=== PATIENT | male | born 1965 | race Caucasian/White ===

== ENCOUNTER 2019-07-09 15:15 | Outpatient (REF) | payer SELFPAY ==
[2019-07-09 14:03] LABS: ALT 121 U/L (16-63); AST 61 U/L (15-37); Albumin 4.1 g/dL (3.4-5.0); Alkaline Phosphatase 138 U/L (46-116); Anion Gap 12.2 mmol/L (3-11); BUN 12 mg/dL (7-18); Bilirubin, Total 0.5 mg/dL (0.2-1.0); CO2 25.8 mmol/L (21.0-32.0); CREATININE 0.98 mg/dL (0.70-1.30); Calcium 9.4 mg/dL (8.5-10.1); Calculated LDL 211 mg/dL; Chloride 100 mmol/L (98-107); Cholesterol 272 mg/dL (<200); Glucose 234 mg/dL (74-106); HDL Cholesterol 37 mg/dL (40-60); Sodium 138 mmol/L (136-145); Total Protein 7.8 g/dL (6.4-8.2); Triglyceride 121 mg/dL (<150)
== END 2019-07-09 15:35 ==
LOC: LBN 15:15
PROVIDERS: PCP Family Medicine; Visit Provider Family Medicine
DX: I25.810 Atherosclerosis of coronary artery bypass graft(s) without angina pectoris (principal)
CPT/HCPCS: 80053; 80061

== ENCOUNTER 2020-11-30 18:42 | Emergency (ER) | payer SELFPAY ==
[2020-11-30] VITALS (36 sets, daily range): BP systolic 130–170; BP diastolic 69–97; PULSE 70–90; RESP 13–30; TEMP 36.5; O2SAT 93–97
--- NOTE | 2020-11-30 18:45 | RT.EKG_ITS ---
APPROVED REPORT Exam: Resting ECG Patient Location: E HR:84 bpm ECG Measurements Heart Rate 84 AXIS TN 181 P 15 QRSd 139 QRS 38 QT 389 T 60 QTc 460 Conclusion Sinus rhythm...normal P axis, V-rate 60- 99 Ventricular premature complex...V complex w/ short R-R interval Probable left atrial enlargement...P >50mS, <-0.10mV V1 Right bundle branch block...QRSd>120, terminal axis(90,270) I have reviewed and interpreted ECG and agree with software generated interpretation.
--- NOTE | 2020-11-30 18:51 | ED.GENADUL_ITS ---
Discharge Plan Disposition Patient Disposition: [facility] ([facility]) Condition: Stable Discharge Details Clinical Impression: Acute cerebrovascular accident (CVA), Internal carotid artery occlusion, Vertebral artery occlusion Primary Care Provider: Pablo Sheth ED Provider: Loraine Geronimo Home Meds and New Rx's Prescriptions: No Action aspirin 81 mg tablet,delayed release (DR/EC) 81 mg PO DAILY Qty: 90 RF: 3 atorvastatin 80 mg tablet 80 mg PO QHS Qty: 30 RF: 1 nitroglycerin 0.4 mg tablet, sublingual 0.4 mg SL Q5-15M PRN (Reason: chest pain) Qty: 60 RF: 3 naproxen sodium [Aleve] 220 mg capsule 220 mg PO Q8H RF: 0 lisinopril 10 mg tablet 10 mg PO DAILY RF: 0 Eliquis 5 mg tablet 5 mg PO BID RF: 0 metoprolol succinate 25 mg tablet extended release 24 hr 25 mg PO DAILY RF: 0 Medical Decision Making 55-year-old with multiple chronic medical problems including diabetes, hypertension, WI, CABG and recent stroke who presents to the ED with slurred speech for the past 7 hours. Patient later endorsed that he was at [facility] 9 days ago for similar slurred speech and diagnosed with a TIA and possible multiple strokes, PFO and placed on Eliquis and advised to follow-up with cardiology. Patient arrived to the ED by wheelchair as a stroke alert. Patient assessed in the hallway on a stretcher. NIH score approximately a 4 based on mild aphasia and dysarthria, mild left pronator drift, mild right lower leg ataxia. Patient protecting his airway. Blood pressure 165/88. Remainder vitals within normal limits. Patient sent directly to radiology for CTA head and neck. CTA head and neck noted occlusion of the right internal carotid artery and of the left proximal vertebral artery. Chest x-ray negative. No acute hemorrhage or midline shift noted on Noncon CT head. Case discussed with [facility] and no beds available. Case discussed with [facility] neurology --as patient has a low NIH score, questioning whether these findings are acute versus chronic. As patient was recently at [facility], will obtain any imaging studies recently obtained there to determine if this is acute versus chronic. Discussed with nursing cloth laminating supervisor at [facility] who stated that their fax machine was down and they were unable to send imaging reports. I discussed with nurse Farmer who reported that patient had a CTA head and neck with no stenosis or occlusion noted within the head but with moderate stenosis around 55% in the proximal left ICA and mild stenosis less than 50% in the right ICA. There is also noted occlusion in the proximal to mid left cervical vertebral artery of uncertain age. Patient also had an MRI brain which noted an acute or recent infarct in the right frontal extending to the right posterior temporal parietal region. He also had bilateral lower extremity ultrasounds which were negative for DVT. He also had an echo which noted a normal septum, normal left ventricular function with an EF of 50 to 55% with findings suggestive of a PFO. Patient was placed on Eliquis and a 48-hour Holter monitor was placed with plan for follow-up with cardiology. Patient states his last dose of Eliquis was last night. Patient states the difference in his symptoms last week and today was that his slurred speech resolved before transport to the ED last week and his slurred speech has persisted today and is still present. Case discussed again with [facility] neurology and he is accepted for transfer. Accepting physician Dr. Grimm. Recommend a PO aspirin and IV fluids. No recommendations for Eliquis at this time. Medical Records Medical records reviewed: Yes I reviewed the patient's medical records. Imaging Data Radiologic Study: Radiologist's impression: CT Angiography Head Without And With Contrast Exam date and time: 11/30/2020 6:50 PM Age: 55 years old Clinical indication: Speech disturbance; Patient HX: TIA x2 days ago, new onset of symptoms today at 1230, slurred speech and headache TECHNIQUE: Imaging protocol: Computed tomographic angiography of the head without and with intravenous contrast. 3D rendering (Not supervised by radiologist): MIP and/or 3D reconstructed images were created by the technologist. Radiation optimization: All CT scans at this facility use at least one of these dose optimization techniques: automated exposure control; mA and/or kV adjustment per patient size (includes targeted exams where dose is matched to clinical indication); or iterative reconstruction. Contrast material: [id number]; Contrast volume: 85 ml; Contrast route: INTRAVENOUS (IV); Other technique: STROKE PROTOCOL was implemented. COMPARISON: No relevant prior studies available. FINDINGS: ANTERIOR CIRCULATION: Right internal carotid artery: Occlusion of the right internal carotid artery, through the distal cavernous segment. Right middle cerebral artery: No occlusion or significant stenosis. No aneurysm. Right anterior cerebral artery: No occlusion or significant stenosis. No aneurysm. Left internal carotid artery: Intracranial segment is patent with no significant stenosis. No aneurysm. Left middle cerebral artery: No occlusion or significant stenosis. No aneurysm. Left anterior cerebral artery: No occlusion or significant stenosis. No aneurysm. POSTERIOR CIRCULATION: Right vertebral artery: No occlusion or significant stenosis. No aneurysm. Left vertebral artery: Hypoplastic. Basilar artery: No occlusion or significant stenosis. No aneurysm. Right posterior cerebral artery: No occlusion or significant stenosis. No aneurysm. Left posterior cerebral artery: No occlusion or significant stenosis. No aneurysm. HEAD: Brain: There is moderate diffuse heterogeneity of the white matter attenuation, consistent with chronic white matter ischemic changes. No intracranial hemorrhage, midline shift, or mass effect. No acute loss of villa-white differentiation. Cerebral ventricles: Normal. No ventriculomegaly. Bones/joints: Unremarkable. No acute fracture. Paranasal sinuses: Visualized sinuses are normal. No fluid levels. Mastoid air cells: Visualized mastoids are normal. No mastoid effusion. Soft tissues: Unremarkable. IMPRESSION: 1. Occlusion of the right internal carotid artery, through the distal cavernous portion, with reconstitution of right middle and anterior cerebral arteries. 2. Moderate periventricular white matter hypoattenuation, suggesting chronic small vessel ischemia. 3. Hypoplastic distal left vertebral artery. CT Angiography Neck Without And With Contrast Exam date and time: 11/30/2020 6:50 PM Age: 55 years old Clinical indication: Speech disturbance; Patient HX: TIA x2 days ago, new onset of symptoms today at 1230, slurred speech and headache TECHNIQUE: Imaging protocol: Computed tomographic angiography of the neck without and with contrast. 3D rendering (Not supervised by radiologist): MIP and/or 3D reconstructed images were created by the technologist. Radiation optimization: All CT scans at this facility use at least one of these dose optimization techniques: automated exposure control; mA and/or kV adjustment per patient size (includes targeted exams where dose is matched to clinical indication); or iterative reconstruction. Contrast material: [id number]; Contrast volume: 85 ml; Contrast route: INTRAVENOUS (IV); COMPARISON: No relevant prior studies available. FINDINGS: Right common carotid artery: Calcified atherosclerotic disease distally, with mild stenosis. Right internal carotid artery: Occlusion of right internal carotid artery, just above the bifurcation. Right external carotid artery: No occlusion or stenosis of the origin. Right vertebral artery: No stenosis. No dissection or occlusion. Left common carotid artery: No stenosis. No dissection or occlusion. Left internal carotid artery: Calcified atherosclerotic disease at the origin of the left internal carotid artery, resulting in mild stenosis. Left external carotid artery: No occlusion or stenosis of the origin. Left vertebral artery: Diminutive left vertebral artery, completely occluded proximally and hypoplastic distally. Bones/joints: No acute fracture. Soft tissues: Normal. No significant soft tissue swelling. IMPRESSION: 1. Occlusion of the right internal carotid artery from just above the bifurcation, through the distal cavernous segment. 2. Proximal occlusion of the diminutive left vertebral artery, which is hypoplastic distally. XR Chest Exam date and time: 11/30/2020 9:36 PM Age: 55 years old Clinical indication: Chest pain TECHNIQUE: Imaging protocol: XR of the chest. Views: 2 views. COMPARISON: No relevant prior studies available. FINDINGS: Lungs: Unremarkable. No consolidation. Pleural spaces: Unremarkable. No pleural effusion. No pneumothorax. Heart/Mediastinum: Prior CABG. No cardiomegaly. Bones/joints: Moderate right and mild left acromioclavicular joint degenerative changes. IMPRESSION: No acute cardiopulmonary abnormality. Lab Data Lab results reviewed: Yes I reviewed the patient's lab results. Labs: Laboratory Tests Range/Units 11/30/20 11/30/20 11/30/20 18:30 18:30 18:30 WBC (4.4-10.8) 10^3/uL 10.77 RBC (4.36-5.78) 10^6/uL 4.92 Hgb (13.5-17.5) g/dL 15.8 Hct (40.0-50.0) % 47.0 MCV (80-95) fL 95.5 H MCH (27.0-33.0) pg 32.1 MCHC (32.0-36.0) % 33.6 RDW (11.8-14.1) % 12.4 Plt Count (130-400) 10^3/uL 214 MPV (8.0-11.0) fL 9.5 Immature Gran % 0.5 Neutrophils % 66.0 Lymphocytes % 20.0 Monocytes % 9.1 Eosinophils % 3.2 Basophils % 1.2 Nucleated RBC % % 0 Absolute Neutrophils (1.2-6.7) 10^3/uL 7.11 H Absolute Lymphocytes (1.2-3.4) 10^3/uL 2.15 Absolute Monocytes (0.1-0.8) 10^3/uL 0.98 H Absolute Eosinophils (0.0-0.7) 10^3/uL 0.35 Absolute Basophils (0.0-0.2) 10^3/uL 0.13 PT (9.3-11.0) sec 10.4 INR (0.9-1.1) 1.0 APTT (21.0-27.5) sec 23.5 Sodium (136-145) mmol/L 142 Potassium (3.5-5.1) mmol/L 4.0 Chloride (98-107) mmol/L 102 Carbon Dioxide (21.0-32.0) mmol/L 31.9 Anion Gap (3-11) mmol/L 8.1 BUN (7-18) mg/dL 17 Creatinine (0.70-1.30) mg/dL 1.0 Estimated GFR/1.73 m2 (mL/min/1.73m2) >= 60.00 Glucose (74-106) mg/dL 173 H Calcium (8.5-10.1) mg/dL 9.6 Magnesium (1.8-2.4) mg/dL 2.2 Total Bilirubin (0.2-1.0) mg/dL 0.6 AST (15-37) U/L 43 H ALT (16-63) U/L 66 H Alkaline Phosphatase (46-116) U/L 111 Troponin I (<0.06) ng/mL < 0.05 Total Protein (6.4-8.2) g/dL 7.5 Albumin (3.4-5.0) g/dL 3.9 ECG Data Attestation: I personally reviewed and interpreted this ECG (s) as follows: Interpretation: Rate of 84, sinus, PVCs. Right bundle branch block. No old EKG to compare. No STEMI. DE 181. QTc 460. HPI General Mode of arrival: wheelchair . Date/Time Provider Initiated Documentation: 11/30/20 18:45 . Limitations to Documentation: no limitations . Information obtained by: patient . HPI Narrative: Patient is a 55-year-old male with a history of diabetes, hypertension, WI, CABG, stroke who presents to the ED with slurred speech for the past 7 hours. Patient states he had some difficulty with getting out words yesterday but states this resolved until around noon today when he was having slurred speech. He does admit that around 10:00 he started feeling fuzzy and then the slurred speech started 2 hours later. Patient denies any extremity weakness or numbness. He admitted to a brief headache upon arrival to the ED but states is now resolved. Patient states he was recently at [facility] for the same symptom presentation and diagnosed with stroke and admitted to the hospital. He states he was started on Eliquis for a PFO and was advised to follow-up with cardiology. Related Data Home Medications Medication Instructions Recorded Confirmed naproxen sodium 220 mg capsule 220 mg PO Q8H 07/07/19 11/30/20 aspirin 81 mg tablet,delayed 81 mg PO DAILY #90 tab 07/09/19 11/30/20 release atorvastatin 80 mg tablet 80 mg PO QHS #30 tab 07/09/19 11/30/20 apixaban 5 mg tablet 5 mg PO BID 11/23/20 11/30/20 lisinopril 10 mg tablet 10 mg PO DAILY 11/23/20 11/30/20 metoprolol succinate 25 mg 25 mg PO DAILY 11/23/20 11/30/20 tablet,extended release 24 hr nitroglycerin 0.4 mg sublingual 0.4 mg SL Q5-15M PRN #60 tab 11/28/20 11/30/20 tablet Previous Rx's Medication Instructions Recorded aspirin 81 mg tablet,delayed 81 mg PO DAILY #90 tab 07/09/19 release atorvastatin 80 mg tablet 80 mg PO QHS #30 tab 07/09/19 nitroglycerin 0.4 mg sublingual 0.4 mg SL Q5-15M PRN #60 tab 11/28/20 tablet Allergies Allergy/AdvReac Type Severity Reaction Status Date / Time No Known Allergies Allergy Verified 11/30/20 19:36 Review of Systems All systems reviewed & are unremarkable except as noted in HPI and below Constitutional Constitutional: Reports as per HPI, Denies chills and Denies fever(s) Eyes Eyes: Denies blurry vision ENT Ears, Nose, Mouth, and Throat: Denies dizziness, Denies sore throat and Denies throat swelling Cardiovascular Cardiovascular: Denies chest pain and Denies dyspnea Respiratory Respiratory: Denies cough and Denies dyspnea Gastrointestinal Gastrointestinal: Denies abdominal pain, Denies diarrhea and Denies vomiting Genitourinary Genitourinary: Denies hematuria and Denies dysuria Musculoskeletal Musculoskeletal: Denies back pain and Denies numbness Integumentary/Breasts Skin/Breast: Denies lesions and Denies rash Neurologic Neurologic: Reports abnormal speech, Denies dizziness, Denies localized weakness and Denies numbness Allergic/Immunologic Allergic/Immunologic: Denies throat swelling PFSH Medical History Coronary artery disease involving autologous artery coronary bypass graft Diabetes mellitus Essential hypertension Fatty liver disease, nonalcoholic Heart attack 2003 2010 2011 History of WI (myocardial infarction) Patent foramen ovale Stroke November 2020, PFO Tobacco consumption Family History (Updated 07/09/19 @ 08:55 by Lillian Young LPN) Father Alcohol abuse Heart disease Hypertension FH: heart attack Diabetes Sister Breast cancer Cancer tongue,kidney Mother Schizo affective schizophrenia Social History (Updated 08/27/19 @ 10:08 by Lillian Young LPN) Smoking/Tobacco Use Status: Current every day Tobacco Type: cigarettes Tobacco: How many years used: 39 Smoking risk assessment performed?: Yes Alcohol Intake: current Alcohol Intake frequency: 3 or more drinks per day Alcohol type: beer Drug use: Never Substance use type: does not use Adopted: No Household members: family and other Details: sister Housing: house Number of Children: 1 Do you need help understanding health information?: Often current occupation: works at [employer] Pets and animals: No Sexually active: No Do you think of yourself as: straight/heterosexual Current gender identity: male What is your relationship status?: Panel score (0-1 are the most socially isolated patients): 0 What type of physical activity do you participate in: none Seatbelt use: always Drive intox or ride w/intox wagon driver: No Working smoke detector in home: Yes Fire extinguisher in home: Yes Carbon monox detector in home: Yes Do you feel safe at home: Yes Do you feel safe in your relationship?: Yes Exam Const General: cooperative and no acute distress Orientation: alert, awake and oriented x3 HENMT Head: normal to inspection Face and sinus: normal facial exam Eyes General: appearance normal, both eyes and all related structures Pupils: PERRL EOM: EOM intact bilaterally Neck Neck: normal visual inspection and No submandibular swelling Lymphatic: no lymphadenopathy noted Chest Chest: normal inspection of the chest and no tenderness Resp Effort & Inspection: normal respiratory effort and able to speak in complete sentences Auscultation: clear to auscultation bilaterally Cardio Rate: regular rate Rhythm: regular rhythm GI Inspection: normal to inspection Palpation: soft, not firm, not rigid and nontender Auscultation: normal bowel sounds Skin General skin exam: no rashes or lesions noted Neuro General: patient alert, patient awake and patient oriented x3 Cranial Nerves: PERRL, EOM intact bilaterally, no nystagmus, facial strength normal, tongue not midline (Tongue with mild deviation to the left ), hearing normal, able to elevate shoulders bilaterally, individual cranial nerve findings and other Cognition: normal cognition Speech: abnormal speech slurred Motor: muscle tone normal throughout, strength 5/5 throughout, movement abnormality noted other (mild ataxia R leg) and pronator drift pronator drift of left upper extremity (mild) Sensory Exam: no sensory deficits noted Extrem General: normal to inspection, full ROM, capillary refill normal, no calf tenderness bilaterally and no edema Psych Appearance: grossly normal Mental Status: mental status grossly normal Speech and Movement: speech and movement normal Affect: normal affect Critical Care Time Critical Care Time Critical Care Time: Yes Total Critical Care Time: 120 Attestation: I spent 120 minutes of critical care time with this patient. This does not include time spent on separately reported billable procedures.
[2020-11-30 19:10] LABS: Abs Immature Grans 0.05 10^3/uL (0.0-0.06); Absolute Basophil Count 0.13 10^3/uL (0.0-0.2); Absolute Eosinophil Count 0.35 10^3/uL (0.0-0.7); Absolute Lymphocyte Count 2.15 10^3/uL (1.2-3.4); Absolute Monocyte Count 0.98 10^3/uL (0.1-0.8); Absolute Neutrophil Count 7.11 10^3/uL (1.2-6.7); Basophils % 1.2; Eosinophils % 3.2; HGB 15.8 g/dL (13.5-17.5); Immature Grans % 0.5; MCH 32.1 pg (27.0-33.0); MCHC 33.6 % (32.0-36.0); MCV 95.5 fL (80-95); MPV 9.5 fL (8.0-11.0); Monocytes % 9.1; Nucleated RBC 0 %; Platelet Count 214 10^3/uL (130-400); RBC 4.92 10^6/uL (4.36-5.78); RDW 12.4 % (11.8-14.1); RDW-SD 43.4 fL; WBC 10.77 10^3/uL (4.4-10.8)
[2020-11-30 19:27] LABS: PTT Activated 23.5 sec (21.0-27.5); Prothrombin Time 10.4 sec (9.3-11.0)
--- NOTE | 2020-11-30 19:29 | DI.CT_ITS ---
EXAM: CT BRAIN NECK CTA CLINICAL HISTORY: slurred speech, headache, r/o acute cva. TECHNIQUE: Imaging Protocol: Axial CT angiography was performed with multi-slice acquisition and mu lti-planar and/or 3D reconstructions. CONTRAST MATERIAL: Intravenous: Omnipaque 350 Contrast volume:structured data in ml COMPARISON: No exams were available for comparison FINDINGS: CTA Neck W: Aortic arch anatomy: The aortic arch anatomy is conventional. Sternotomy wires are noted. Anterior circulation: There appears to be an element of stenosis at the origin of left common carotid artery off the aortic arch. Otherwise the common carotid arteries ascend with normal luminal diameters proximally moderat e plaque distally. There is heavy plaque the carotid bifurcation occlusion the right internal caroti d artery and origin. This vessel is not reconstituted in the neck and there is no opacified vessel w ithin the right within the skull base-right carotid canal. This vessel is reconstituted the upper ca vernous sinus region. Left common absent left carotid bifurcation exhibits moderate plaque with a moderate stenosis at the origin of left internal carotid artery. Above this level the left ICA exhibits satisfactory calibre knee upper neck and within the skull base-carotid canal. Posterior circulation: Right vertebral artery is dominant. No significant stenosis at its origin off of the right subclavia n artery. Exhibits normal-slightly prominent diameter within the foramen transversarium and is the m ain contributor to the formation of the basilar artery at the skull base level. The opposite-left vertebral artery is diminutive. It is not opacified proximally. There is a very t hin left vertebral artery seen in the upper foramen transverse area skull base. Most distal aspect e xhibits twig like contribution to the formation of the basilar artery at the skull base. CTA Brain W: Anterior circulation: The right internal carotid artery is occluded from its origin in the neck through the distal cavernou s segment. The right middle cerebral artery appears patent. The left internal carotid artery is pat ent in skull base-carotid canal as well as within the cavernous sinus supraclinoid aspect is patent. Left middle cerebral artery appears patent. Both A1 segments are patent as are the anterior cerebra l arteries. There is no evidence of obvious aneurysm at the level of the anterior communicating griselda ry. Posterior circulation: Dominant contributor to the formation of the basilar artery at the skull base is the right vertebral artery with only twig like vessel contributing on the left. Basilar artery ascends with normal lumin al diameter. No intraluminal thrombus nor dissection. Distally gives off superior cerebellar arteri es bilaterally and above this level terminates as bilateral posterior cerebral arteries which appear patent. There is no aneurysm of the tip of the basilar artery. There are no posterior communicating arteries on either side of the [id number]. CT BRAIN: There is no evidence of intracranial hemorrhage, mass effect, or shift of midline structures. No ext ra-axial fluid collection ventricles are not enlarged or shifted and there is no blood within the robert tricular system nor within the basal cisterns. There is an area of abnormal hypodensity in the right periventricular white matter, probably post ischemic. This measures approximately 2.8 cm AP by 1 cm wide. No abnormal enhancement in this region. No ring enhancing lesions in the brain no abnormal m eningeal enhancement. No skull fractures. Visualized paranasal sinuses are clear. IMPRESSION: 1. Right internal carotid artery is occluded from its origin and is not opacified through the distal cavernous segment. There is mild-moderate stenosis at the origin of the left internal carotid artery . 2. There is proximal occlusion of a diminutive left vertebral artery. This is also noted to be a sm all vessel distally. The right vertebral artery is dominant and the main contributor to the formatio n of the basilar artery. 3. Area of abnormal hypodensity in the right periventricular white matter, nonenhancing and nonhemo rrhagic and most probably related to post ischemic sequelae. No ring enhancing lesions in the brain. No abnormal meningeal enhancement. RADIATION DOSE DELIVERED: 2,294.35mGy.cm Total DLP DATA REPOSITORY: All CT scans at this facility are submitted to the National Radiology Data Registry (NRDR) Dose Index Registry (DIR) with the [employer] (ACR). RADIATION OPTIMIZATION: All CT scans at this facility use at least one of these dose optimization te chniques: automated exposure control; mA and/or kV adjustment per patient size (includes targeted exa ms where dose is matched to clinical indication); or iterative reconstruction.
[2020-11-30 19:31] LABS: ALT 66 U/L (16-63); AST 43 U/L (15-37); Albumin 3.9 g/dL (3.4-5.0); Alkaline Phosphatase 111 U/L (46-116); Anion Gap 8.1 mmol/L (3-11); BUN 17 mg/dL (7-18); Bilirubin, Total 0.6 mg/dL (0.2-1.0); CO2 31.9 mmol/L (21.0-32.0); Calcium 9.6 mg/dL (8.5-10.1); Chloride 102 mmol/L (98-107); Glucose 173 mg/dL (74-106); Magnesium 2.2 mg/dL (1.8-2.4); Sodium 142 mmol/L (136-145); Total Protein 7.5 g/dL (6.4-8.2); Troponin I < 0.05 ng/mL (<0.06)
--- NOTE | 2020-11-30 19:47 | DI.VRAD_ITS ---
Addendum created by Chad Montero MD on 11/30/2020 7:51:27 PM EDT: THIS REPORT CONTAINS FINDINGS THAT MAY BE CRITICAL TO PATIENT CARE. The findings were verbally communicated via telephone conference with JOHNATHON Diaz at 7:51 PM EDT on 11/30/2020. The findings were acknowledged and understood. Initial report created on 11/30/2020 7:47:46 PM EDT: PROCEDURE INFORMATION: Exam: CT Angiography Head Without And With Contrast Exam date and time: 11/30/2020 6:50 PM Age: 55 years old Clinical indication: Speech disturbance; Patient HX: TIA x2 days ago, new onset of symptoms today at 1230, slurred speech and headache TECHNIQUE: Imaging protocol: Computed tomographic angiography of the head without and with intravenous contrast. 3D rendering (Not supervised by radiologist): MIP and/or 3D reconstructed images were created by the technologist. Radiation optimization: All CT scans at this facility use at least one of these dose optimization techniques: automated exposure control; mA and/or kV adjustment per patient size (includes targeted exams where dose is matched to clinical indication); or iterative reconstruction. Contrast material: [id number]; Contrast volume: 85 ml; Contrast route: INTRAVENOUS (IV); Other technique: STROKE PROTOCOL was implemented. COMPARISON: No relevant prior studies available. FINDINGS: ANTERIOR CIRCULATION: Right internal carotid artery: Occlusion of the right internal carotid artery, through the distal cavernous segment. Right middle cerebral artery: No occlusion or significant stenosis. No aneurysm. Right anterior cerebral artery: No occlusion or significant stenosis. No aneurysm. Left internal carotid artery: Intracranial segment is patent with no significant stenosis. No aneurysm. Left middle cerebral artery: No occlusion or significant stenosis. No aneurysm. Left anterior cerebral artery: No occlusion or significant stenosis. No aneurysm. POSTERIOR CIRCULATION: Right vertebral artery: No occlusion or significant stenosis. No aneurysm. Left vertebral artery: Hypoplastic. Basilar artery: No occlusion or significant stenosis. No aneurysm. Right posterior cerebral artery: No occlusion or significant stenosis. No aneurysm. Left posterior cerebral artery: No occlusion or significant stenosis. No aneurysm. HEAD: Brain: There is moderate diffuse heterogeneity of the white matter attenuation, consistent with chronic white matter ischemic changes. No intracranial hemorrhage, midline shift, or mass effect. No acute loss of villa-white differentiation. Cerebral ventricles: Normal. No ventriculomegaly. Bones/joints: Unremarkable. No acute fracture. Paranasal sinuses: Visualized sinuses are normal. No fluid levels. Mastoid air cells: Visualized mastoids are normal. No mastoid effusion. Soft tissues: Unremarkable. IMPRESSION: 1. Occlusion of the right internal carotid artery, through the distal cavernous portion, with reconstitution of right middle and anterior cerebral arteries. 2. Moderate periventricular white matter hypoattenuation, suggesting chronic small vessel ischemia. 3. Hypoplastic distal left vertebral artery. ASSESSMENT: ASPECTS ([place] Stroke Program Early CT Score) is 10. PROCEDURE INFORMATION: Exam: CT Angiography Neck Without And With Contrast Exam date and time: 11/30/2020 6:50 PM Age: 55 years old Clinical indication: Speech disturbance; Patient HX: TIA x2 days ago, new onset of symptoms today at 1230, slurred speech and headache TECHNIQUE: Imaging protocol: Computed tomographic angiography of the neck without and with contrast. 3D rendering (Not supervised by radiologist): MIP and/or 3D reconstructed images were created by the technologist. Radiation optimization: All CT scans at this facility use at least one of these dose optimization techniques: automated exposure control; mA and/or kV adjustment per patient size (includes targeted exams where dose is matched to clinical indication); or iterative reconstruction. Contrast material: [id number]; Contrast volume: 85 ml; Contrast route: INTRAVENOUS (IV); COMPARISON: No relevant prior studies available. FINDINGS: Right common carotid artery: Calcified atherosclerotic disease distally, with mild stenosis. Right internal carotid artery: Occlusion of right internal carotid artery, just above the bifurcation. Right external carotid artery: No occlusion or stenosis of the origin. Right vertebral artery: No stenosis. No dissection or occlusion. Left common carotid artery: No stenosis. No dissection or occlusion. Left internal carotid artery: Calcified atherosclerotic disease at the origin of the left internal carotid artery, resulting in mild stenosis. Left external carotid artery: No occlusion or stenosis of the origin. Left vertebral artery: Diminutive left vertebral artery, completely occluded proximally and hypoplastic distally. Bones/joints: No acute fracture. Soft tissues: Normal. No significant soft tissue swelling. IMPRESSION: 1. Occlusion of the right internal carotid artery from just above the bifurcation, through the distal cavernous segment. 2. Proximal occlusion of the diminutive left vertebral artery, which is hypoplastic distally. REFERENCES: NASCET CRITERIA. The degree of internal carotid artery stenosis is based on NASCET criteria. Normal is no stenosis. Mild is less than 50% stenosis. Moderate is 50-69% stenosis. Severe is 70% to 99% stenosis. Total occlusion is no detectable patent lumen. Dictated and Authenticated by: Chad Montero MD. Ordering:ALIREZA Baron MD
[2020-11-30] MEDS: Normal Saline Flush 10 ML SYR IVP (21:21)
--- NOTE | 2020-11-30 21:37 | DI.RAD_ITS ---
EXAM: XR CHEST 2V PA LATERAL CLINICAL HISTORY: possible stroke, r/o acute cva. TECHNIQUE: 2D digital imaging was performed. COMPARISON: No exams were available for comparison FINDINGS: There are sternotomy wires and evidence of previous CABG. Heart size is normal. Lungs are clear. No infiltrates nor pleural effusions. No pulmonary edema IMPRESSION: No acute pulmonary findings. Sternotomy. CABG. Heart size is normal. DATA REPOSITORY: RADIATION DOSE DELIVERED:
--- NOTE | 2020-11-30 21:41 | DI.VRAD_ITS ---
PROCEDURE INFORMATION: Exam: XR Chest Exam date and time: 11/30/2020 9:36 PM Age: 55 years old Clinical indication: Chest pain TECHNIQUE: Imaging protocol: XR of the chest. Views: 2 views. COMPARISON: No relevant prior studies available. FINDINGS: Lungs: Unremarkable. No consolidation. Pleural spaces: Unremarkable. No pleural effusion. No pneumothorax. Heart/Mediastinum: Prior CABG. No cardiomegaly. Bones/joints: Moderate right and mild left acromioclavicular joint degenerative changes. IMPRESSION: No acute cardiopulmonary abnormality. Dictated and Authenticated by: Chad Montero MD. Ordering:ALIREZA Baron MD
[2020-11-30] MEDS: Normal Saline - Diluent 50 ML VIAL IV (22:06)
[2020-11-30] MEDS: Normal Saline 1,000 ML 150 ML IV (22:31)
[2020-11-30] MEDS: Aspirin 325 MG TAB PO (22:31)
== END 2020-11-30 23:23 | disposition short-term general hospital (02) ==
PROVIDERS: Emergency Provider Physician Assistant; PCP Family Medicine
DX: I63.89 Other cerebral infarction (principal); I63.212 Cerebral infarction due to unspecified occlusion or stenosis of left vertebral artery; I65.21 Occlusion and stenosis of right carotid artery; R47.81 Slurred speech; R29.704 NIHSS score 4
CPT/HCPCS: 36415; 36416; 70496; 70498; 80053; 82962; 93005; 96360; 99291; 99292; 71046; 83735; 84484; 85025; 85610; 85730; 93010